=== PATIENT | female | born 1955 | race Caucasian/White ===

== ENCOUNTER 2018-06-21 13:23 | Outpatient (CLI) | payer OTHER ==
--- NOTE | 2018-06-21 14:04 | BD ---
FEXAM: DEXA bone density examination HISTORY: 62-year-old postmenopausal female for screening COMPARISON: None FINDINGS: L1--bone mineral density 1.142 g/sq cm; T score 1.4 L2--bone mineral density 1.138 g/sq cm; T score 1.0 L3--bone mineral density 1.156 g/sq cm; T score 0.7 L4--bone mineral density 1.198 g/sq cm; T score 1.2 Total L1-L4--bone mineral density 1.161 g/sq cm; T score 1.0 Left femoral neck--bone mineral density 0.813; T score -0.3 Total proximal left femur--bone mineral density 0.998; T score 0.5 IMPRESSION: Normal bone mineral density.
== END 2018-06-21 13:24 | disposition home or self-care (01) ==
LOC: BICMAMMO 13:23
PROVIDERS: ATTEND Family Medicine
DX: Z13.820 Encounter for screening for osteoporosis (principal)
CPT/HCPCS: 77080